=== PATIENT | female | born 1970 | race African-American/Black ===

== ENCOUNTER 2016-07-12 12:38 | Emergency (ER) | payer SELFPAY ==
[~2016-07-12] VITALS: Ht 180.3 cm; Wt 105.7 kg
[~2016-07-12 12:38] MED LIST: ACETAMINOPHEN-1 EAC1 ORAL; IBUPROFEN600 MG ORAL; NITROFURANTOIN100 M2 ORAL; NKM; TRAMADOL HCL100 M2 ORAL
[2016-07-12] MEDS ORDERED: NKM (12:56)
[2016-07-12] MEDS ORDERED: Lidocaine 2% Visc 15ml soln ORAL ONE (13:15)
[2016-07-12] MEDS ORDERED: Dicyclomine HCl 10mg/5ml oral soln ORAL ONE (13:15)
[2016-07-12] MEDS ORDERED: Mylanta II UD 30ml ORAL ONE (13:15)
[2016-07-12 13:22] VITALS: BP 135/73
[2016-07-12] MEDS ORDERED: Ketorolac 60mg Inj IM ONE (13:30)
[2016-07-12] MEDS ORDERED: Acetaminophen 500mg (ES) tab ORAL ONE (13:30)
[2016-07-12] MEDS ORDERED: TYLENOL EXTRA500 MG ORAL (13:41)
--- NOTE | 2016-07-12 13:41 | Emergency Room Report ---
History of Present Illness General Chief Complaint: Pain Source: Patient Present Illness HPI 45-year-old female presents to emergency Department complaining of right-sided upper back/rib pain x2 days. Patient states she was previously prescribed [place] 5 mg and is requesting [place] 10 mg. Patient denies new injury or fall. Patient states she has chronic pain in that area. Patient states she is regularly prescribed [place]. Patient also reports 2 episodes of diarrhea this a.m. denies abdominal pain denies blood in the stool denies nausea or vomiting. Patient denies taking medications for pain today. She describes her pain as 10 out of 10 in severity localized it does not radiate in the posterior right side of the upper back/rib. Meds cough, nausea, vomiting, fevers, chills or history of neoplastic disease. She denies recent spinal procedures. She denies difficulty breathing, shortness of breath, dyspnea or pain with breathing. Denies numbness tingling or loss of sensation or gross motor movements of the extremities, incontinence of bowel or bladder. Denies CP, Palpitations, LOC, AMS , dizziness, Changes in Vision, Sensation, paresthesias, or a sudden severe headache. Allergies: Coded Allergies: IODINE (Verified Allergy, Unknown, 05/03/16) NO KNOWN DRUG ALLERGIES (Unverified Allergy, Unknown, 12/24/14) Patient History Past Medical History: see triage record Past Surgical History: none Pertinent Family History: none Last Menstrual Period: 06/17/16 Now: No Immunizations: UTD Reviewed Nursing Documentation: PMH: Agreed, PSxH: Agreed Nursing Documentation-PMH Past Medical History: No Stated History Hx Hypertension: No Hx Asthma: No Hx Diabetes: No Review of Systems All Other Systems: negative except mentioned in HPI Physical Exam Vital Signs Date Time Temp Pulse Resp B/P Pulse Ox O2 Delivery O2 Flow Rate FiO2 07/12/16 12:48 98.4 112 16 135/73 96 Room Air Sp02 EP Interpretation: reviewed, normal General Appearance: no apparent distress, alert, GCS 15, non-toxic Head: normocephalic, atraumatic Eyes: bilateral eye PERRL, bilateral eye normal inspection ENT: hearing grossly normal, normal pharynx, no angioedema, normal voice Neck: full range of motion, no meningismus, no bony tend, supple/symm/no masses Respiratory: chest non-tender, lungs clear, normal breath sounds, speaking full sentences Cardiovascular #1: regular rate, rhythm, no edema Gastrointestinal: normal bowel sounds, non tender, soft, no guarding, no rebound Rectal: deferred Genitourinary: normal inspection, no CVA tenderness Musculoskeletal: back normal, gait/station normal, normal range of motion, no calf tenderness, tender - Right paraspinal tenderness to palpation in the thoracic area and right side of the posterior lower ribs. No flail chest no obvious deformity noted. Bruising, swelling, erythema. No midline spinal tenderness Neurologic: alert, oriented x3, responsive, motor strength/tone normal, sensory intact, speech normal Psychiatric: judgement/insight normal, memory normal, mood/affect normal, no suicidal/homicidal ideation Skin: normal color, no rash, warm/dry, well hydrated Lymphatic: no adenopathy Medical Decision Making PA Attestation Dr. coffman is my supervising Physician whom patient management has been discussed with. ER Course Pt. presents to the ED c/o that it upper back/rib pain x2 days. Patient requesting 10 mg [place] as her 5 mg markers do not work. Ddx considered but are not limited to Fracture, dislocation, contusion, Sprain/ Strain/Spasm, Epidural abscess, Neoplastic mets. CURES REPORT: pt. was rx's quantity 10 of 5mg [place] over a month ago, no evidence of being prescribed [place] regularly over the last 6 months. D/w pt the report. Vital signs: are WNL, pt. is afebrile H&PE are most consistent with back pain, no acute injury. No midline tenderness ORDERS: - None required at this time. ED INTERVENTIONS: - 40mg IM Toradol -500mg Tylenol PO - D/w pt that she needs to follow up with her primary care doctor for pain management if she continues to have pain with no acute injuries. Discussed with patient that she is stable for further outpatient evaluation of her pain. DISCHARGE: At this time pt. is stable for d/c to home. Will provide printed patient care instructions, and any necessary prescriptions. Care plan and follow up instructions have been discussed with the patient prior to discharge. Last Vital Signs Date Time Temp Pulse Resp B/P Pulse Ox O2 Delivery O2 Flow Rate FiO2 07/12/16 13:22 98.4 110 16 135/73 96 Room Air Disposition: HOME, SELF-CARE Condition: Stable Patient Instructions: Back Pain, Adult, [id number] Additional Instructions: Take medications as directed. Follow up with PCP in 3-5 days Return sooner to ED if new symptoms occur, or current symptoms become worse. follow up with your Primary care doctor for prescription of pain management medications Krysten Sutton Jul 12, 2016 13:40
[2016-07-12 13:51] VITALS: BP 135/73
== END 2016-07-12 13:55 | disposition home or self-care (01) ==
LOC: EMR 13:40
DX: M54.9 Dorsalgia, unspecified (principal); R07.81 Pleurodynia
CPT/HCPCS: 96372; 99283